=== PATIENT | male | born 1935 | race Caucasian/White ===

== ENCOUNTER 2016-08-28 05:19 | Day surgery (SDC) | payer OTHER ==
[~2016-08-28] VITALS: Ht 175.3 cm; Wt 70.0 kg
[~2016-08-28 05:19] MED LIST: ADVAIR 250/501 DISK IH; COZAAR100 MG PO; FLOMAX0.4 MG PO; LASIX80 MG PO; LIPITOR10 MG PO; LO-DOSE ASPIRIN81 M2 PO; MACULAR VITAMI1 EACH PO; NEPHRO-VITE,1 TABLET PO; NORVASC10 MG PO; PROAIR RESPICL90 MCG IH; RENVELA800 MG PO; SPIRIVA RESPIMAT4 GM IH; TOPROL XL50 MG PO
[2016-08-28 05:59] VITALS: BP 170/78
[2016-08-28 06:25] LABS: CHLORIDE 96 mEq/L (99-109); POTASSIUM 4.6 mEq/L (3.7-5.4); SODIUM 140 mEq/L (136-147)
[2016-08-28 06:27] LABS: GLUCOSE 88 mg/dL (70-99)
[2016-08-28 06:28] LABS: ANION GAP 17 MEQ/L (2-14)
[2016-08-28 06:30] LABS: GFR ESTIMATE (CALCULATED) 8 mL/min/
[2016-08-28 06:31] LABS: UREA NITROGEN (BUN) 54 mg/dL (9-23)
[2016-08-28 06:35] LABS: HEMATOCRIT 40.3 % (38.0-50.0); MCH 30.1 PG (29.0-34.0); MCHC 31.3 G/DL (30.0-36.0); MCV 96.2 FL (86-99); MEAN PLAT.VOLUME 9.7 uM^3 (9.0-12.4); PLATELET COUNT 237 K/uL (156-360); RBC DIS.WIDTH-CV 15.3 % (11.8-14.6); RBC DIS.WIDTH-SD 53.6 % (39-53); RED BLOOD COUNT 4.19 M/uL (4.00-5.50); WHITE BLOOD COUNT 5.3 K/uL (4.1-10.2)
[2016-08-28 07:32] LABS: METH RESISTANT S AUREUS PCR NEGATIVE (NEGATIVE); PROBE CHECK PASS; SPECIMEN PROCESSING CONTROL PASS
[2016-08-28 09:40] VITALS: BP 152/74
== END 2016-08-28 10:10 | disposition home or self-care (01) ==
LOC: SDC 05:19
PROVIDERS: Surgery
PROC: 05783ZZ Dilation of Left Axillary Vein, Percutaneous Approach (ICD-10-PCS; principal; 2016-08-28)
DX: T82.41XA Breakdown (mechanical) of vascular dialysis catheter, initial encounter (principal); I12.0 Hypertensive chronic kidney disease with stage 5 chronic kidney disease or end stage renal disease; N18.6 End stage renal disease; E78.00 Pure hypercholesterolemia, unspecified; Z99.2 Dependence on renal dialysis; Z82.49 Family history of ischemic heart disease and other diseases of the circulatory system; Z79.82 Long term (current) use of aspirin; Z85.038 Personal history of other malignant neoplasm of large intestine
CPT/HCPCS: 80048; 85027; 87641; C1725; C1769; C1887; C1894; J0690; J1644; J2405; J3010